=== PATIENT | female | born 1945 | race Caucasian/White ===

== ENCOUNTER 2021-05-20 08:14 | Emergency (ER) | payer BC, OTHER ==
[2021-05-20 08:19] VITALS: BP 164/87; PULSE 92; TEMP 98.8; BMI 31.9
[2021-05-20] MEDS ORDERED: traMADol HCL 50 MG TABLET PO ONE (09:59)
[2021-05-20] MEDS ORDERED: traMADol HCL 50 MG TABLET ONE (10:02)
[2021-05-20 10:40] LABS: BASO % 0.9 % (0-2.0); EOS % 2.5 % (0-4.5); HEMATOCRIT 37.5 % (32.4-45.2); LYMPH % 17.5 % (8-40); MCH 28.4 pg (25.7-33.7); MCHC 32.1 g/dl (32.0-36.0); MEAN CELL VOLUME 88.4 fl (80-96); MEAN PLT VOLUME 7.9 fl (7.5-11.1); MONO % 5.5 % (3.8-10.2); NEUT % 73.6 % (42.8-82.8); PLATELET COUNT 347 10^3/uL (134-434); RBC 4.24 M/mm3 (3.60-5.2); RDW 13.9 % (11.6-15.6); WHITE BLOOD COUNT 9.4 K/mm3 (4.0-10.8)
[2021-05-20 10:45] LABS: CALCIUM 9.5 mg/dl (8.5-10)
[2021-05-20 10:52] LABS: ACTIVATED PTT 67.1 SECONDS (25.2-36.5)
[2021-05-20 10:57] LABS: INR 1.52 (0.82-1.09); PROTHROMBIN TIME (PATIENT) 16.6 SEC (10.2-13.0)
[2021-05-20 11:10] LABS: ALBUMIN 3.7 g/dl (3.4-5.0); BILIRUBIN,TOTAL 0.6 mg/dl (0.2-1); CREATININE 1.2 mg/dl (0.55-1.3); TOT PROT 7.7 g/dl (6.4-8.2)
== END 2021-05-20 13:58 | disposition home or self-care (01) ==
LOC: FER 08:14
DX: R07.81 Pleurodynia (principal); M25.532 Pain in left wrist; W01.0XXA Fall on same level from slipping, tripping and stumbling without subsequent striking against object, initial encounter
CPT/HCPCS: 36415; 70450-TC; 71250-TC; 72125-TC; 73110-TC-LT-FY; 73130-TC-LT-FY; 73523-TC-FY; 80053; 85025; 85610; 85730; 99285-25